=== PATIENT | female | born 1985 | race Caucasian/White ===

== ENCOUNTER 2017-10-25 22:18 | Emergency (ER) | payer BC, MEDICAID, SELFPAY ==
[~2017-10-25] VITALS: Ht 175.3 cm; Wt 116.0 kg
[2017-10-25 22:19] VITALS: BP 181/104
[2017-10-25] MEDS ORDERED: LIDOCAINE-MPF 1%, 5ML ONE (22:53)
[2017-10-25] MEDS ORDERED: LIDOCAINE-MPF 1%, 5ML INFIL ONE (23:00)
[2017-10-25] MEDS ORDERED: VERA120T5 PO (23:15)
[2017-10-25] MEDS ORDERED: LISI-167 PO (23:15)
[2017-10-25] MEDS ORDERED: MELO15TA24 PO (23:15)
[2017-10-25] MEDS ORDERED: LAMO200T3 PO (23:16)
== END 2017-10-25 23:40 | disposition home or self-care (01) ==
LOC: ED 23:36
DX: L03.311 Cellulitis of abdominal wall (principal); L02.211 Cutaneous abscess of abdominal wall; I10 Essential (primary) hypertension
CPT/HCPCS: 10060; 99284

== ENCOUNTER 2019-01-29 23:34 | Emergency (ER) | payer MEDICAID ==
[~2019-01-29] VITALS: Ht 175.3 cm; Wt 114.4 kg
[~2019-01-29 23:34] MED LIST: LAMO200T3 PO; LISI-167 PO; MELO15TA24 PO; VERA120T5 PO
[2019-01-30] MEDS ORDERED: IBUPROFEN 600 MG TABLET PO ONE
[2019-01-30 00:17] LABS: BASOPHILS # (AUTO) 0.06 x10^3/uL (0-0.1); BASOPHILS % (AUTO) 1 % (0-1); EOSINOPHILS # (AUTO) 0.12 x10^3/uL (0-0.4); EOSINOPHILS % (AUTO) 1 % (1-7); LYMPHOCYTES # (AUTO) 2.38 x10^3/uL (1-3.4); LYMPHOCYTES % (AUTO) 23 % (22-44); MD NO; MEAN CORPUSCULAR HEMOGLOBIN 29.7 pg (27.0-34.8); MEAN CORPUSCULAR HGB CONC 32.3 g/dL (32.4-35.8); MEAN CORPUSCULAR VOLUME 91.8 fL (80-100); MEAN PLATELET VOLUME 8.2 fL (7.4-10.4); MONOCYTES # (AUTO) 0.54 x10^3/uL (0.2-0.8); MONOCYTES % (AUTO) 5 % (2-9); NEUTROPHILS # (AUTO) 7.06 x10^3/uL (1.8-6.8); NEUTROPHILS % (AUTO) 70 % (42-75); PLATELET COUNT 275 x10^3/uL (130-400); RED BLOOD COUNT 4.63 x10^6/uL (3.82-5.3); RED CELL DISTRIBUTION WIDTH 13.4 % (9.6-15.2)
[2019-01-30 00:29] LABS: ALANINE AMINOTRANSFERASE 35 U/L (12-78); ALBUMIN 3.7 g/dL (3.4-5.0); ANION GAP 9 mmol/L (5-15); CHLORIDE 105 mmol/L (98-107); CREATININE 0.84 mg/dL (0.55-1.02)
[2019-01-30 00:34] LABS: ALKALINE PHOSPHATASE 55 U/L (45-117); BILIRUBIN,TOTAL 0.2 mg/dL (0.2-1.0); TOTAL PROTEIN 7.3 g/dL (6.4-8.2); TROPONIN I < 0.015 ng/mL (0.000-0.045)
[2019-01-30 00:49] VITALS: BP 136/79
--- NOTE | 2019-01-30 00:54 | NUR ---
D/C INSTRUCTIONS, MEDS & F/U APPT RV'WD WITH PT, SHE VERBALIZES UNDERSTANDING. RX GIVEN X1. PT AMBULATED OUT OF ED WITHOUT DIFFICULTY.
== END 2019-01-30 00:56 | disposition home or self-care (01) ==
LOC: ED 01-30 00:20
DX: R07.89 Other chest pain (principal); R73.09 Other abnormal glucose; I10 Essential (primary) hypertension
CPT/HCPCS: 36415; 71045; 80053; 84484; 84703; 85025; 93005; 99284